=== PATIENT | male | born 1955 | race Caucasian/White ===

== ENCOUNTER 2016-08-25 13:00 | Day surgery (SDC) | payer SELFPAY ==
[~2016-08-25] VITALS: Ht 177.8 cm; Wt 78.5 kg
[2016-08-25 13:32] VITALS: BP 117/73
[2016-08-25] MEDS ORDERED: NORCO 5/3251 TABLET PO ×2 (14:36→16:03)
[2016-08-25 17:00] VITALS: BP 134/86
[2016-08-25 18:05] VITALS: BP 147/82
== END 2016-08-25 18:05 | disposition home or self-care (01) ==
LOC: SDC 13:00
PROC: 0YQ60ZZ Repair Left Inguinal Region, Open Approach (ICD-10-PCS; principal; 2016-08-25)
DX: K40.90 Unilateral inguinal hernia, without obstruction or gangrene, not specified as recurrent (principal); Z82.49 Family history of ischemic heart disease and other diseases of the circulatory system; R00.1 Bradycardia, unspecified
CPT/HCPCS: 93005; C1781; J0131; J0690; J2250; J3010; S0020